=== PATIENT | male | born 1955 | race Caucasian/White ===

== ENCOUNTER 2018-07-15 20:34 | Observation (INO) ==
[2018-07-15] MEDS ORDERED: Methocarbamol 500 MG TABLET PO PRN (22:00)
[2018-07-15] MEDS ORDERED: traMADol 50 MG TABLET PO PRN (22:00)
[2018-07-15] MEDS ORDERED: *HR* LORazepam 2 MG/ML VIAL IVP PRN (22:06)
--- NOTE | 2018-07-15 23:00 | Internal Med History&Physical ---
Date of Encounter: 07/15/18 Time of Encounter: 22:57 Internal Medicine - H&P: HPI Chief complaint: seizure Admitted From: Home Plans for Post Hospital Care: Home History of present illness: Mr. Shah is a 63 year old male reports a history of hypertension and post- thyroid ablation hypothyroidism who presents on transfer from [facility] where he was taken to for a seizure episode. She states that in the past year he has had 3 episodes of syncopal events will also consciousness for which she did not seek medical attention but is unaware of the cause. Earlier today when he got out of his sister's car he was at a stoplight and at that point he lost consciousness and tenderness came to his attention and called EMS who took him to [facility]. He has poor recollection of the events around the event. He denies any chest pain but does complain of some mild headache he says he has chronic back pain for which he takes acetaminophen and tramadol as needed. He says he had has never had a seizure before but is on sure if the past syncopal episodes had seizure activity as they went on witnessed. He denies illicit drug use and says he drinks alcohol sporadically last use was 4 days ago. He does smoke half a pack daily. He has not had any more seizure activity since the witnessed episode outside. On review of old records it is seen that he was previously evaluated for a cavitary lung lesion with no conclusive results. Past Med Surg Social Fam HX - Past Medical History Medical history: COPD, hypertension, thyroid disease Psychiatric history: no psych history - Past Surgical History Surgical History: thyroidectomy Additional surgical history: Tonsils - Social History Smoking Status: Current every day smoker Smokeless Tobacco Status: Yes Alcohol use: none Drug use: none - Family History Father Name: Damian Shah SR Living Status: Age at : 45 Cause of : cerebral hemmorhage Internal Medicine - H&P: Meds Acetaminophen [Tylenol] 325 mg PO Q6HR PRN 02/23/17 [History] Albuterol Sulfate [Ventolin Hfa] 2 puff IH Q4H PRN 02/23/17 [History] Budesonide/Formoterol 80/4.5 [Symbicort 80/4.5] 2 puff IH BID 02/23/17 [History ] Levothyroxine [Synthroid] 88 mcg PO DAILY 02/23/17 [History] Loratadine [Claritin] 10 mg PO DAILY 02/23/17 [History] Tiotropium [Spiriva] 18 mcg IH 0700 02/23/17 [History] Tramadol HCl [Ultram] 50 mg PO Q6H PRN 02/23/17 [History] Atenolol [Tenormin] 25 mg PO DAILY 01/18/18 [History] Fluticasone Propionate Nasal [Flonase] 1 spr NS DAILY 01/18/18 [History] Methocarbamol [Robaxin] 500 mg PO BID PRN 01/18/18 [History] 3 Allergy/AdvReac Type Severity Reaction Status Date / Time No Known Allergies Allergy Verified 01/18/18 09:35 All Systems PM: A 10-system review of systems was performed and is negative for pertinent findings except as documented above in the HPI. - Constitutional Vitals: Temp Pulse Resp BP Pulse Ox 98.1 F 78 16 101/64 98 07/15/18 22:24 07/15/18 22:24 07/15/18 22:24 07/15/18 22:24 07/15/18 22:24 Exam: Vitals: Reviewed General: Unkept appearing and foul smelling. Skin: Dirty. HEENT: Moist mucous membranes. No conjunctivae pallor. Neck: No lymphadenopathy. No JVD. No carotid bruits. No palpable thyroid. Chest: Normal thoracic expansion. Normal breath sounds. Clear to auscultation. Heart: Normal S1 & S2; rhythmic. No rubs or murmurs. Abdomen: Non-distended, soft and non-tender to palpation. No peritoneal reaction. Liver is normal in size. Spleen is not palpable. Extremities: No clubbing, cyanosis or edema. No calf tenderness. Normal distal pulses. Neurological: Awake, alert and oriented to person, place and time. No focal deficits. Psych: Affect appropriate. - Assessment and plan (1) Seizure Current Visit: Yes Status: Acute Assessment and plan: Witnessed on the outside but not by healthcare personnel. New onset with no inciting factors noted. No recurrences since. Recommend to obtain a UDS. Should have a brain MRI and EEG done. Seizure and aspiration precautions. Benzos when necessary. Neurology consultation advised. No urgent indication for antiepileptic agents. (2) Hypertension Current Visit: Yes Status: Acute Assessment and plan: We will resume home medications. Qualifiers: Hypertension type: essential hypertension Qualified Code(s): I10 - Essential (primary) hypertension (3) Tobacco dependence Current Visit: Yes Status: Acute Assessment and plan: Counseled extensively and resources made available. Nicotine patch available if wanted. (4) Lumbago Current Visit: Yes Status: Chronic Assessment and plan: Can continue acetaminophen and tramadol as needed Qualifiers: Chronicity: chronic Back pain laterality: unspecified Sciatica presence: unspecified whether sciatica present Qualified Code(s): M54.5 - Low back pain ; G89.29 - Other chronic pain (5) DVT prophylaxis Current Visit: Yes Status: Acute Assessment and plan: Subcutaneous heparin ordered. - Time Spent With Patient Total time spent is greater than 50% in coordination of care (as documented) at patient's floor/unit and/or counseling patient: Greater than 35 minutes
[2018-07-16 05:28] LABS: Basophils # 0.1 K/mcL (0.0-0.2); Basophils % 1.1 %; Eosinophils % 0.7 %; Hematocrit 38.9 % (37.5-50.1); Hemoglobin 13.8 g/dL (12.9-16.9); Immature Granulocytes % 0.9 % (0-4); Lymphocytes # 0.6 K/mcL (0.6-4.6); Lymphocytes % 10.1 %; Mean Corpuscular HGB Conc 35.5 g/dL (31.6-35.5); Mean Corpuscular Hemoglobin 33.7 pg (28.0-33.3); Mean Corpuscular Volume 94.9 fL (83.0-100.0); Monocytes # 0.8 K/mcL (0.0-1.3); Monocytes % 14.5 %; Platelet Count 328 K/mcL (140-400); Red Cell Distribution Width 12.3 % (11.5-14.5); Segmented Neutrophils % 72.7 %
[2018-07-16 05:56] LABS: Alanine Aminotransferase 29 Units/L (7-52); Albumin 3.6 g/dL (3.5-5.7); Albumin/Globulin Ratio 0.9 (1.1-2.2); Alkaline Phosphatase 125 Units/L (34-104); Aspartate Amino Transferase 42 Units/L (13-39); BUN/Creatinine Ratio 15 (6-26); Bilirubin,Direct 0.4 mg/dL (0.0-0.2); Bilirubin,Indirect 0.4 mg/dL (0.0-1.2); Bilirubin,Total 0.8 mg/dL (0.3-1.0); Blood Urea Nitrogen 8 mg/dL (8-23); Calcium 9.4 mg/dL (8.6-10.3); Carbon Dioxide 23 mEq/L (23-29); Chloride 89 mEq/L (98-107); Globulin 4.1 g/dL (2.4-3.5); Glucose 60 mg/dL (70-105); Osmolality,Calculated 264 (280-300); Potassium 3.8 mEq/L (3.5-5.1); Sodium 129 mEq/L (136-145); Total Protein 7.7 g/dL (6.4-8.9); eGFR For Non-African Americans > 60 (> 60)
[2018-07-16 05:57] LABS: Thyroid Stimulating Hormone 6.428 mcIU/mL (0.340-5.600)
[2018-07-16] MEDS: *HR* Heparin 5,000 UNIT/ML VIAL SQ SCH ×3 (06:02→21:30)
[2018-07-16 07:44] LABS: Amphetamine Screen,Urine Negative ng/mL (Cutoff=1000); Barbiturate Screen,Urine Negative ng/mL (Cutoff=200)
[2018-07-16 07:45] LABS: Benzodiazepines Screen,Urine Negative ng/mL (Cutoff=300); Cannabinoid Screen,Urine Negative ng/mL (Cutoff = 50); Cocaine Screen,Urine Negative ng/mL (Cutoff= 300); Opiate Screen,Urine Negative ng/mL (Cutoff=300); Phencyclidine Screen,Urine Negative ng/mL (Cutoff=25)
[2018-07-16] MEDS: Budesonide/Formoterol 80/4.5 MDI IH SCH ×2 (08:25→19:32)
[2018-07-16] MEDS: Tiotropium 18 MCG inhalation IH SCH (08:25)
[2018-07-16] MEDS: Fluticasone Propionate Nasal 50 MCG/SPRAY BOTTLE NS SCH (10:08)
[2018-07-16] MEDS: Loratadine 10 MG TABLET PO SCH (10:08)
[2018-07-16] MEDS ORDERED: 0.9 % Sodium Chloride 1,000 ML IVC SCH (10:15)
--- NOTE | 2018-07-16 10:18 | Internal Med Progress Note ---
Hospitalist Progress Note - Encounter Date of Encounter: 07/16/18 Time of Encounter: 10:18 - Subjective Interval History: patient seen and examined at bedside. No seizure activity noted at this time . Nursing reported that patient has bedbugs as well as fleas. Patient states that he was unaware of this . - Exam Vitals: Temp Pulse Resp BP Pulse Ox 98.3 F 85 16 123/77 97 07/16/18 08:02 07/16/18 08:02 07/16/18 08:26 07/16/18 08:02 07/16/18 08:26 Exam: Vitals: Reviewed General: Unkept appearing and foul smelling. Skin: Dirty. HEENT: Moist mucous membranes. No conjunctivae pallor. Neck: No lymphadenopathy. No JVD. No carotid bruits. No palpable thyroid. Chest: Normal thoracic expansion. Normal breath sounds. Clear to auscultation. Heart: Normal S1 & S2; rhythmic. No rubs or murmurs. Abdomen: Non-distended, soft and non-tender to palpation. No peritoneal reaction. Liver is normal in size. Spleen is not palpable. Extremities: No clubbing, cyanosis or edema. No calf tenderness. Normal distal pulses. Neurological: Awake, alert and oriented to person, place and time. No focal deficits. Psych: Affect appropriate. - Assessment and Plan (1) Seizure Current Visit: Yes Status: Acute Assessment and Plan: Witnessed on the outside but not by healthcare personnel. New onset with no inciting factors noted. No recurrences since. Recommend to obtain a UDS. Should have a brain MRI and EEG done. Seizure and aspiration precautions. Benzos when necessary. Neurology consultation advised. No urgent indication for antiepileptic agents. 07/16 Patient reports that approx a month ago he had 2 separate occasions where he awoke on the floor, and had a loss of time. We will cont with seizure precautions awaiting MRI EEG results. Benzos when needed neurology consulted appreciate recommendations (2) Hypertension Current Visit: Yes Status: Acute Assessment and Plan: Controlled we will continue home medications. (3) Tobacco dependence Current Visit: Yes Status: Acute Assessment and Plan: Counseled extensively and resources made available. Nicotine patch available if wanted. (4) DVT prophylaxis Current Visit: Yes Status: Acute Assessment and Plan: Subcutaneous heparin ordered. (5) Lumbago Current Visit: Yes Status: Chronic Assessment and Plan: Can continue acetaminophen and tramadol as needed - Time Spent with Patient Total time spent is greater than 50% in coordination of care (as documented) at patient's floor/unit and/or counseling patient: Internal Medicine: Result - Labs CBC & Chem 7: 07/16/18 03:37 07/16/18 03:37 Labs: Short CBC 07/16/18 Range/Units 03:37 WBC 5.5 (4.3-11.1) K/mcL Hgb 13.8 (12.9-16.9) g/dL Hct 38.9 (37.5-50.1) % Plt Count 328 (140-400) K/mcL Neutrophils # 4.0 (1.6-8.9) K/mcL BMP 07/16/18 03:37 Sodium 129 L Potassium 3.8 Chloride 89 L Carbon Dioxide 23 BUN 8 Creatinine 0.55 L Glucose 60 L Calcium 9.4 Liver Function 07/16/18 Range/Units 03:37 Total Bilirubin 0.8 (0.3-1.0) mg/dL Direct Bilirubin 0.4 H (0.0-0.2) mg/dL AST 42 H (13-39) Units/L ALT 29 (7-52) Units/L Alkaline Phosphatase 125 H (34-104) Units/L Albumin 3.6 (3.5-5.7) g/dL - Impressions Impressions Brain MRI 07/15/18 22:04 IMPRESSION: No acute intracranial abnormality. Mild chronic microvascular ischemic disease. D/ / 07/16/2018 08:11:31 Roberto Lora MD / godfrey Interpreting Provider: Roberto Lora MD Consult Discharge Plan - Plan [facility]errals: [facility] [Primary Care Provider] - (2) Hypertension Qualifiers: Hypertension type: essential hypertension Qualified Code(s): I10 - Essential (primary) hypertension (5) Lumbago Qualifiers: Chronicity: chronic Back pain laterality: unspecified Sciatica presence: unspecified whether sciatica present Qualified Code(s): M54.5 - Low back pain; G89.29 - Other chronic pain
[2018-07-16] MEDS: Acetaminophen 325 MG TABLET PO PRN (11:55)
--- NOTE | 2018-07-16 15:47 | Neurology - Consult Note ---
Date of Encounter: 07/16/18 Time of Encounter: 15:44 Assessment and Plan (1) Spell of altered consciousness Current Visit: Yes Status: Acute At this juncture I cannot be absolutely certain that he really experienced an episode of seizure versus syncope versus up all intoxication. He does take tramadol which is known to be epileptogenic. I therefore recommend an alternative choice for pain management. Otherwise I would simply recommend obtaining an EEG. I would also recommend considering a loop recorder in this gentleman who is had multiple episodes of altered consciousness. I am not convinced at this point. He truly has epilepsy however this would be pending further assessment and workup. I would hold antiepileptic medications for now. Further recommendations will be made pending the EEG. I am unable to identify any MRI abnormality which might be expected to cause seizures. History of Present Illness HPI: The chart was reviewed, the patient was seen and examined. Mr. Shah is a 63 year old male who is being seen for neurologic consultation at the request of the hospitalist secondary to question of seizure activity. He informs me that he was walking in [facility] yesterday when apparently he was witnessed to fall by someone driving by in a car. No generalized tonic-clonic seizure activities reported. He is not certain how long he remained unconscious for. He did not lose bladder continence and did not bite his tongue. He did however her scope his left knee. He states he still feels "dizzy" he has had 2 episodes of this nature over the past year however has not had any medical assessment for them. He is known to take tramadol for, back pain. He denies starting any other medications or discontinuing it. He did have a blood alcohol level of 17. MRI scan of the brain was negative. He is not had EEG, he is not on cardiac monitoring. He was slightly hyponatremic at 129. Vital signs are stable. Past Med Surg Social Fam HX - Past Medical History Medical history: COPD, hypertension, thyroid disease Psychiatric history: no psych history - Past Surgical History Surgical History: thyroidectomy Additional surgical history: Tonsils - Social History Smoking Status: Current every day smoker Smokeless Tobacco Status: Yes Alcohol use: none Drug use: none - Family History Father Name: Damian Shah SR Living Status: Age at : 45 Cause of : cerebral hemmorhage Medications and Allergies Acetaminophen [Tylenol] 325 mg PO Q6HR PRN 02/23/17 [History] Albuterol Sulfate [Ventolin Hfa] 2 puff IH Q6H PRN 02/23/17 [History] Budesonide/Formoterol 80/4.5 [Symbicort 80/4.5] 2 puff IH BID 02/23/17 [History ] Loratadine [Claritin] 10 mg PO DAILY 02/23/17 [History] Tiotropium [Spiriva] 18 mcg IH 0700 02/23/17 [History] Tramadol HCl [Ultram] 50 mg PO Q6H PRN 02/23/17 [History] Atenolol [Tenormin] 25 mg PO DAILY 01/18/18 [History] Fluticasone Propionate Nasal [Flonase] 1 spr NS DAILY 01/18/18 [History] Levothyroxine [Synthroid] 88 mcg PO 0630 07/16/18 [History] Losartan [Cozaar] 25 mg PO DAILY 07/16/18 [History] Multivitamin [One Daily Multivitamin] 1 tab PO DAILY 07/16/18 [History] Sodium Chloride [Sodium Chloride Tab] 1 gm PO DAILY 07/16/18 [History] 3 Allergy/AdvReac Type Severity Reaction Status Date / Time No Known Allergies Allergy Verified 07/16/18 11:55 All Systems: The remainder of the systems were reviewed and are negative Review of Systems: Balance of the systems review is negative. Physical Examination - Vital Signs Vital Signs: Initial Vital Signs Temp Pulse Resp BP Pulse Ox 98.1 F 78 16 101/64 98 07/15/18 22:24 07/15/18 22:24 07/15/18 22:24 07/15/18 22:24 07/15/18 22:24 - Neurologic Detailed motor examination: full strength in all major muscle groups Motor examination - right side: 5/5: deltoids, biceps, triceps, wrist flexion, wrist extension, senior software engineer analytics, hip flexors, tibialis Anterior, quadriceps, toe extension (EHL), plantarflexion Motor examination - left side: 5/5: deltoids, biceps, triceps, wrist flexion, wrist extension, hip flexors, senior software engineer analytics, quadriceps, tibialis Anterior, toe extension (EHL), plantarflexion Mental Status Examination: awake, alert, oriented to person, oriented to place, oriented to time, follows commands appropriately, answers questions appropriately, no agnosia, no aphasia, no aproxia Cranial nerve examination: PERRL, EOMI, visual morris intact, corneal reflexes brisk symmetrically, sensory to face intact, mastication intact, no facial asymmetry is present, no dysarthria, hearing is intact symmetrically, soft palate elevates bilaterally upon phonation, gag reflex intact, flexes SCM and trapezius muscles symmetrically with full power, tongue protrudes midline, no atrophy or facial fasiculations present Cerebellar examination: no dysmetria, performs finger to nose and heel to lackey symmetrically without ataxia, no truncal ataxia, no difficulty with rapid alternating movements Results - Laboratory Findings CBC and BMP: 07/16/18 03:37 07/16/18 03:37 Abnormal lab findings: Abnormal lab results RBC 4.10 M/mcL (4.19-5.50) L 07/16/18 03:37 MCH 33.7 pg (28.0-33.3) H 07/16/18 03:37 MPV 9.0 fL (9.4-12.4) L 07/16/18 03:37 Sodium 129 mEq/L (136-145) L 07/16/18 03:37 Chloride 89 mEq/L (98-107) L 07/16/18 03:37 Creatinine 0.55 mg/dL (0.70-1.30) L 07/16/18 03:37 Glucose 60 mg/dL (70-105) L 07/16/18 03:37 Calculated Osmolality 264 (280-300) L 07/16/18 03:37 Direct Bilirubin 0.4 mg/dL (0.0-0.2) H 07/16/18 03:37 AST 42 Units/L (13-39) H 07/16/18 03:37 Alkaline Phosphatase 125 Units/L (34-104) H 07/16/18 03:37 Globulin 4.1 g/dL (2.4-3.5) H 07/16/18 03:37 Albumin/Globulin Ratio 0.9 (1.1-2.2) L 07/16/18 03:37 TSH 6.428 mcIU/mL (0.340-5.600) H 07/16/18 03:37 Ethyl Alcohol 17 mg/dL (Less than 10) H 07/16/18 03:37 Consult Discharge Plan - Plan [facility]errals: [facility] [Primary Care Provider] -
[2018-07-16] MEDS ORDERED: *HR* HYDROcodone/Acet 5/325 mg TABLET PO ONE (21:48)
[2018-07-17] MEDS: *HR* Heparin 5,000 UNIT/ML VIAL SQ SCH ×3 (05:07→21:06)
[2018-07-17 07:03] LABS: BUN/Creatinine Ratio 20 (6-26); Blood Urea Nitrogen 11 mg/dL (8-23); Calcium 8.8 mg/dL (8.6-10.3); Carbon Dioxide 25 mEq/L (23-29); Chloride 91 mEq/L (98-107); Glucose 102 mg/dL (70-105); Osmolality,Calculated 262 (280-300); Potassium 3.5 mEq/L (3.5-5.1); Sodium 126 mEq/L (136-145); eGFR For Non-African Americans > 60 (> 60)
[2018-07-17 07:34] LABS: Basophils % 0.7 %; Eosinophils # 0.1 K/mcL (0.0-0.6); Eosinophils % 1.6 %; Hemoglobin 12.6 g/dL (12.9-16.9); Immature Granulocytes % 0.9 % (0-4); Lymphocytes # 0.6 K/mcL (0.6-4.6); Lymphocytes % 10.5 %; Mean Corpuscular Hemoglobin 33.8 pg (28.0-33.3); Mean Corpuscular Volume 96.5 fL (83.0-100.0); Mean Platelet Volume 9.3 fL (9.4-12.4); Monocytes # 0.8 K/mcL (0.0-1.3); Monocytes % 14.2 %; Neutrophils # 4.1 K/mcL (1.6-8.9); Platelet Count 336 K/mcL (140-400); Red Blood Count 3.73 M/mcL (4.19-5.50); Red Cell Distribution Width 12.2 % (11.5-14.5); Segmented Neutrophils % 72.1 %
[2018-07-17] MEDS: Loratadine 10 MG TABLET PO SCH (08:04)
[2018-07-17] MEDS: Fluticasone Propionate Nasal 50 MCG/SPRAY BOTTLE NS SCH (08:04)
[2018-07-17] MEDS: Acetaminophen 325 MG TABLET PO PRN (08:09)
[2018-07-17 08:51] LABS: Sodium, Urine 110.6 mEq/L
[2018-07-17] MEDS: Budesonide/Formoterol 80/4.5 MDI IH SCH ×2 (10:44→20:41)
[2018-07-17] MEDS: Tiotropium 18 MCG inhalation IH SCH (10:44)
--- NOTE | 2018-07-17 12:04 | Internal Med Progress Note ---
Hospitalist Progress Note - Encounter Date of Encounter: 07/17/18 Time of Encounter: 12:04 - Subjective Interval History: patient seen and examined at bedside. No seizure activity noted at this time Denies any pain or discomfort at this time - Exam Vitals: Temp Pulse Resp BP Pulse Ox 98.1 F 70 13 90/48 98 07/17/18 11:27 07/17/18 11:27 07/17/18 11:27 07/17/18 11:27 07/17/18 11:27 Exam: Vitals: Reviewed General: Unkept appearing and foul smelling. Skin: Dirty. bite escobar on lower legs bilat HEENT: Moist mucous membranes. No conjunctivae pallor. Neck: No lymphadenopathy. No JVD. No carotid bruits. No palpable thyroid. Chest: Normal thoracic expansion. Normal breath sounds. Clear to auscultation. Heart: Normal S1 & S2; rhythmic. No rubs or murmurs. Abdomen: Non-distended, soft and non-tender to palpation. No peritoneal reaction. Liver is normal in size. Spleen is not palpable. Extremities: No clubbing, cyanosis or edema. No calf tenderness. Normal distal pulses. Neurological: Awake, alert and oriented to person, place and time. No focal deficits. Psych: Affect appropriate. - Assessment and Plan (1) Seizure Current Visit: Yes Status: Acute Assessment and Plan: Witnessed on the outside but not by healthcare personnel. New onset with no inciting factors noted. No recurrences since. Recommend to obtain a UDS. Should have a brain MRI and EEG done. Seizure and aspiration precautions. Benzos when necessary. Neurology consultation advised. No urgent indication for antiepileptic agents. 07/16 Patient reports that approx a month ago he had 2 separate occasions where he awoke on the floor, and had a loss of time. We will cont with seizure precautions awaiting MRI EEG results. Benzos when needed neurology consulted appreciate recommendations 07/17- no seizure activity overnight. Continues cardiac monitoring MRI with no acute findings Awaiting EEG results Neurology consult to appreciate recommendations Benzos as needed We will discontinue Tramadol-per neurology's recommendation (2) Hypertension Current Visit: Yes Status: Acute Assessment and Plan: Controlled we will continue home medications. (3) Tobacco dependence Current Visit: Yes Status: Acute Assessment and Plan: Counseled extensively and resources made available. Nicotine patch available if wanted. (4) DVT prophylaxis Current Visit: Yes Status: Acute Assessment and Plan: Subcutaneous heparin ordered. (5) Lumbago Current Visit: Yes Status: Chronic - Time Spent with Patient Total time spent is greater than 50% in coordination of care (as documented) at patient's floor/unit and/or counseling patient: Internal Medicine: Result - Labs CBC & Chem 7: 07/17/18 05:54 07/17/18 05:59 Labs: Short CBC 07/17/18 Range/Units 05:54 WBC 5.6 (4.3-11.1) K/mcL Hgb 12.6 L (12.9-16.9) g/dL Hct 36.0 L (37.5-50.1) % Plt Count 336 (140-400) K/mcL Neutrophils # 4.1 (1.6-8.9) K/mcL BMP 07/17/18 05:59 Sodium 126 L Potassium 3.5 Chloride 91 L Carbon Dioxide 25 BUN 11 Creatinine 0.54 L Glucose 102 Calcium 8.8 Consult Discharge Plan - Plan Referrals: [facility] [Primary Care Provider] - (2) Hypertension Qualifiers: Hypertension type: essential hypertension Qualified Code(s): I10 - Essential (primary) hypertension (5) Lumbago Qualifiers: Chronicity: chronic Back pain laterality: unspecified Sciatica presence: unspecified whether sciatica present Qualified Code(s): M54.5 - Low back pain; G89.29 - Other chronic pain
[2018-07-17] MEDS: *HR* HYDROcodone/Acet 5/325 mg TABLET PO PRN ×2 (12:22→21:07)
--- NOTE | 2018-07-17 13:36 | Neurology Progress Note ---
Date of Encounter: 07/17/18 Time of Encounter: 13:33 Assessment and Plan (1) Spell of altered consciousness Current Visit: Yes Status: Acute Suspect we are dealing with a symptomatic seizure due to tramadol. We will obtain an EEG tomorrow to look for epileptiform potentials. If the EEG is normal or does not reveal epileptiform activity then I would hesitate to start AEDs. Subjective Interval history: The chart was reviewed, the patient was seen and examined. He had an uneventful night. He is currently sitting up in bed eating his lunch. He denies any neurologic changes. The EEG is yet pending. At this juncture I am leaning towards the seizure being induced by the tramadol. Further recommendations will be made after the EEG. He is in no acute distress at this time. MRI scan of the brain was negative for an acute abnormality. Objective - Constitutional Vitals: Temp Pulse Resp BP Pulse Ox 98.1 F 70 13 90/48 98 07/17/18 11:27 07/17/18 11:27 07/17/18 11:27 07/17/18 11:27 07/17/18 11:27 - Neurological Exam Motor Examination: Present: full strength in all major muscle groups Motor examination - right side: 5/5: deltoids, biceps, triceps, angular developer, hip flexors, tibialis Anterior, quadriceps, toe extension (EHL), plantarflexion Motor examination - left side: 5/5: deltoids, biceps, triceps, hip flexors, angular developer , quadriceps, tibialis Anterior, toe extension (EHL), plantarflexion Sensation intact: Present: intact Reflexes: Biceps: 2+, Triceps: 2+, Brachioradialis: 2+, Patella: 2+, Achilles: 2 + Mental Status Examination: Present: awake, alert, oriented to person, oriented to place, oriented to time, follows commands appropriately, answers questions appropriately, no agnosia, no aphasia, no aproxia Cranial nerve examination: Present: PERRL, EOMI, visual morris intact, corneal reflexes brisk symmetrically, sensory to face intact, mastication intact, no facial asymmetry is present, no dysarthria, hearing is intact symmetrically, soft palate elevates bilaterally upon phonation, gag reflex intact, flexes SCM and trapezius muscles symmetrically with full power, tongue protrudes midline, no atrophy or facial fasiculations present Cerebellar examination: Present: no dysmetria, performs finger to nose and heel to lackey symmetrically without ataxia, no truncal ataxia, no difficulty with rapid alternating movements Results - Laboratory Findings CBC and BMP: 07/17/18 05:54 07/17/18 05:59 Abnormal lab findings: Abnormal lab results RBC 3.73 M/mcL (4.19-5.50) L 07/17/18 05:54 Hgb 12.6 g/dL (12.9-16.9) L 07/17/18 05:54 Hct 36.0 % (37.5-50.1) L 07/17/18 05:54 MCH 33.8 pg (28.0-33.3) H 07/17/18 05:54 MPV 9.3 fL (9.4-12.4) L 07/17/18 05:54 Sodium 126 mEq/L (136-145) L 07/17/18 05:59 Chloride 91 mEq/L (98-107) L 07/17/18 05:59 Creatinine 0.54 mg/dL (0.70-1.30) L 07/17/18 05:59 Calculated Osmolality 262 (280-300) L 07/17/18 05:59 Direct Bilirubin 0.4 mg/dL (0.0-0.2) H 07/16/18 03:37 AST 42 Units/L (13-39) H 07/16/18 03:37 Alkaline Phosphatase 125 Units/L (34-104) H 07/16/18 03:37 Globulin 4.1 g/dL (2.4-3.5) H 07/16/18 03:37 Albumin/Globulin Ratio 0.9 (1.1-2.2) L 07/16/18 03:37 TSH 6.428 mcIU/mL (0.340-5.600) H 07/16/18 03:37 Ethyl Alcohol 17 mg/dL (Less than 10) H 07/16/18 03:37 Consult Discharge Plan - Plan Referrals: [facility] [Primary Care Provider] -
[2018-07-18] MEDS: *HR* Heparin 5,000 UNIT/ML VIAL SQ SCH ×3 (05:06→21:02)
[2018-07-18] MEDS: Tiotropium 18 MCG inhalation IH SCH (07:39)
[2018-07-18] MEDS: Budesonide/Formoterol 80/4.5 MDI IH SCH ×2 (07:39→21:51)
[2018-07-18] MEDS: Fluticasone Propionate Nasal 50 MCG/SPRAY BOTTLE NS SCH (07:54)
[2018-07-18] MEDS: Loratadine 10 MG TABLET PO SCH (07:54)
[2018-07-18] MEDS: *HR* HYDROcodone/Acet 5/325 mg TABLET PO PRN ×2 (07:54→19:37)
[2018-07-18 08:38] LABS: Basophils # 0.1 K/mcL (0.0-0.2); Basophils % 0.8 %; Eosinophils # 0.1 K/mcL (0.0-0.6); Eosinophils % 2.2 %; Hematocrit 36.1 % (37.5-50.1); Hemoglobin 12.5 g/dL (12.9-16.9); Immature Granulocytes % 0.9 % (0-4); Lymphocytes # 0.8 K/mcL (0.6-4.6); Lymphocytes % 12.2 %; Mean Corpuscular HGB Conc 34.6 g/dL (31.6-35.5); Mean Corpuscular Volume 98.1 fL (83.0-100.0); Mean Platelet Volume 9.2 fL (9.4-12.4); Monocytes % 15.2 %; Neutrophils # 4.4 K/mcL (1.6-8.9); Platelet Count 348 K/mcL (140-400); Red Blood Count 3.68 M/mcL (4.19-5.50); Red Cell Distribution Width 12.2 % (11.5-14.5); Segmented Neutrophils % 68.7 %
--- NOTE | 2018-07-18 08:51 | Neurology Progress Note ---
Date of Encounter: 07/18/18 Time of Encounter: 08:50 Assessment and Plan (1) Spell of altered consciousness Current Visit: Yes Status: Acute Patient has been stable since admission. Has no other episodes of altered consciousness. Presumably he had a seizure perhaps secondary to tramadol. The EEG is yet pending. If the EEG is negative then I would likely not start antiepileptic medications. MRI scan of the brain was unrevealing. He is also on Holter monitoring now. Subjective Interval history: The chart was reviewed, patient was seen and examined. He had an uneventful night. He has had no further seizure activity since admission. Patient is sitting up in bed eating breakfast upon my entering the room. He has not no acute distress. EEG is ordered for today. Objective - Constitutional Vitals: Temp Pulse Resp BP Pulse Ox 98.2 F 64 16 108/61 98 07/18/18 06:35 07/18/18 06:35 07/18/18 07:42 07/18/18 06:35 07/18/18 07:42 - Neurological Exam Motor Examination: Present: full strength in all major muscle groups Motor examination - right side: 5/5: deltoids, biceps, triceps, workforce services representative, hip flexors, tibialis Anterior, quadriceps, toe extension (EHL), plantarflexion Motor examination - left side: 5/5: deltoids, biceps, triceps, hip flexors, workforce services representative , quadriceps, tibialis Anterior, toe extension (EHL), plantarflexion Sensation intact: Present: intact Mental Status Examination: Present: awake, alert, oriented to person, oriented to place, oriented to time, follows commands appropriately, answers questions appropriately, no agnosia, no aphasia, no aproxia Cranial nerve examination: Present: PERRL, EOMI, visual morris intact, corneal reflexes brisk symmetrically, sensory to face intact, mastication intact, no facial asymmetry is present, no dysarthria, hearing is intact symmetrically, soft palate elevates bilaterally upon phonation, gag reflex intact, flexes SCM and trapezius muscles symmetrically with full power, tongue protrudes midline, no atrophy or facial fasiculations present Cerebellar examination: Present: no dysmetria, performs finger to nose and heel to lackey symmetrically without ataxia, no truncal ataxia, no difficulty with rapid alternating movements Results - Laboratory Findings CBC and BMP: 07/18/18 08:02 07/17/18 05:59 Abnormal lab findings: Abnormal lab results RBC 3.68 M/mcL (4.19-5.50) L 07/18/18 08:02 Hgb 12.5 g/dL (12.9-16.9) L 07/18/18 08:02 Hct 36.1 % (37.5-50.1) L 07/18/18 08:02 MCH 34.0 pg (28.0-33.3) H 07/18/18 08:02 MPV 9.2 fL (9.4-12.4) L 07/18/18 08:02 Sodium 126 mEq/L (136-145) L 07/17/18 05:59 Chloride 91 mEq/L (98-107) L 07/17/18 05:59 Creatinine 0.54 mg/dL (0.70-1.30) L 07/17/18 05:59 Calculated Osmolality 262 (280-300) L 07/17/18 05:59 Direct Bilirubin 0.4 mg/dL (0.0-0.2) H 07/16/18 03:37 AST 42 Units/L (13-39) H 07/16/18 03:37 Alkaline Phosphatase 125 Units/L (34-104) H 07/16/18 03:37 Globulin 4.1 g/dL (2.4-3.5) H 07/16/18 03:37 Albumin/Globulin Ratio 0.9 (1.1-2.2) L 07/16/18 03:37 TSH 6.428 mcIU/mL (0.340-5.600) H 07/16/18 03:37 Ethyl Alcohol 17 mg/dL (Less than 10) H 07/16/18 03:37 Consult Discharge Plan - Plan [facility]errals: [facility] [Primary Care Provider] -
[2018-07-18 08:57] LABS: BUN/Creatinine Ratio 16 (6-26); Blood Urea Nitrogen 9 mg/dL (8-23); Calcium 9.3 mg/dL (8.6-10.3); Carbon Dioxide 30 mEq/L (23-29); Chloride 93 mEq/L (98-107); Glucose 88 mg/dL (70-105); Osmolality,Calculated 266 (280-300); Potassium 3.8 mEq/L (3.5-5.1); Sodium 129 mEq/L (136-145); eGFR For Non-African Americans > 60 (> 60)
--- NOTE | 2018-07-18 10:46 | Internal Med Progress Note ---
Hospitalist Progress Note - Encounter Date of Encounter: 07/18/18 Time of Encounter: 10:46 - Subjective Interval History: patient seen and examined at bedside. No seizure activity noted at this time Denies any pain or discomfort at this time - Exam Vitals: Temp Pulse Resp BP Pulse Ox 98.2 F 64 16 108/61 98 07/18/18 06:35 07/18/18 06:35 07/18/18 07:42 07/18/18 06:35 07/18/18 07:42 Exam: Vitals: Reviewed General: Unkept appearing and foul smelling. Skin: Dirty. bite escobar on lower legs bilat HEENT: Moist mucous membranes. No conjunctivae pallor. Neck: No lymphadenopathy. No JVD. No carotid bruits. No palpable thyroid. Chest: Normal thoracic expansion. Normal breath sounds. Clear to auscultation. Heart: Normal S1 & S2; rhythmic. No rubs or murmurs. Abdomen: Non-distended, soft and non-tender to palpation. No peritoneal reaction. Liver is normal in size. Spleen is not palpable. Extremities: No clubbing, cyanosis or edema. No calf tenderness. Normal distal pulses. Neurological: Awake, alert and oriented to person, place and time. No focal deficits. Psych: Affect appropriate. - Assessment and Plan (1) Seizure Current Visit: Yes Status: Acute Assessment and Plan: Witnessed on the outside but not by healthcare personnel. New onset with no inciting factors noted. No recurrences since. Recommend to obtain a UDS. Should have a brain MRI and EEG done. Seizure and aspiration precautions. Benzos when necessary. Neurology consultation advised. No urgent indication for antiepileptic agents. 07/16 Patient reports that approx a month ago he had 2 separate occasions where he awoke on the floor, and had a loss of time. We will cont with seizure precautions awaiting MRI EEG results. Benzos when needed neurology consulted appreciate recommendations 07/17- no seizure activity overnight. Continues cardiac monitoring MRI with no acute findings Awaiting EEG results Neurology consult to appreciate recommendations Benzos as needed We will discontinue Tramadol-per neurology's recommendation 07/18 no seizure activity overnight. Continues cardiac monitoring-no arrhythmias overnight sinus rhythm average heart rate around 70 MRI with no acute findings Awaiting EEG results Neurology consult to appreciate recommendations Benzos as needed We will discontinue Tramadol-per neurology's recommendation (2) Hypertension Current Visit: Yes Status: Acute Assessment and Plan: Controlled we will continue home medications. (3) Tobacco dependence Current Visit: Yes Status: Acute Assessment and Plan: Counseled extensively and resources made available. Nicotine patch available if wanted. (4) DVT prophylaxis Current Visit: Yes Status: Acute Assessment and Plan: Subcutaneous heparin ordered. (5) Lumbago Current Visit: Yes Status: Chronic Assessment and Plan: Can continue acetaminophen tramadol DC'd per neurology's recommendations Continue with [place] for now Evaluated PT OT awaiting recommendations. - Time Spent with Patient Total time spent is greater than 50% in coordination of care (as documented) at patient's floor/unit and/or counseling patient: Internal Medicine: Result - Labs CBC & Chem 7: 07/18/18 08:02 07/18/18 08:02 Labs: Short CBC 07/18/18 Range/Units 08:02 WBC 6.4 (4.3-11.1) K/mcL Hgb 12.5 L (12.9-16.9) g/dL Hct 36.1 L (37.5-50.1) % Plt Count 348 (140-400) K/mcL Neutrophils # 4.4 (1.6-8.9) K/mcL BMP 07/17/18 07/18/18 05:59 08:02 Sodium 126 L 129 L Potassium 3.5 3.8 Chloride 91 L 93 L Carbon Dioxide 25 30 H BUN 11 9 Creatinine 0.54 L 0.57 L Glucose 102 88 Calcium 8.8 9.3 - Impressions Impressions Brain MRI 07/15/18 22:04 IMPRESSION: No acute intracranial abnormality. Mild chronic microvascular ischemic disease. D/ / 07/16/2018 08:11:31 Roberto Lora MD / [facility] Interpreting Provider: Roberto Lora MD Consult Discharge Plan - Plan [facility]errals: [facility] [Primary Care Provider] - (2) Hypertension Qualifiers: Hypertension type: essential hypertension Qualified Code(s): I10 - Essential (primary) hypertension (5) Lumbago Qualifiers: Chronicity: chronic Back pain laterality: unspecified Sciatica presence: unspecified whether sciatica present Qualified Code(s): M54.5 - Low back pain; G89.29 - Other chronic pain
--- NOTE | 2018-07-18 12:18 | EEG/EMG/Oth Biometrics Report ---
EEG Procedure Report Date of procedure: 07/18/18 EEG Procedure: Routine EEG Procedure Note: This is a report of a 21 channel bipolar and referential montage EEG. A posterior dominant rhythm of 8 Hz moderate voltage alpha frequencies identified symmetrically in the posterior head regions. This rhythm attenuates symmetrically with eye opening. Hyperventilation is performed and does not significantly alter the recording. Periods of drowsiness and stage II sleep are identified as reference by dropout of the posterior dominant rhythm and emergence of vertex activity K complexes and sleep spindles. Photic stimulations performed and produces a symmetric driving response. The EKG rhythm strip reveals normal sinus rhythm at 66 bpm. Impressions: This EEG recording is within normal limits. There is no evidence of epileptiform activity identified during the study. Comment: A normal EEG does not preclude a diagnosis of seizure or epilepsy. If the clinical suspicion for seizure activity is high, serial EEGs or perhaps a prolonged recording may increase the yield. Please correlate clinically.
[2018-07-18] MEDS: Acetaminophen 325 MG TABLET PO PRN (19:36)
[2018-07-19 04:57] LABS: Basophils # 0.1 K/mcL (0.0-0.2); Basophils % 1.2 %; Eosinophils # 0.1 K/mcL (0.0-0.6); Eosinophils % 2.6 %; Hematocrit 30.5 % (37.5-50.1); Immature Granulocytes % 1.6 % (0-4); Lymphocytes # 0.7 K/mcL (0.6-4.6); Lymphocytes % 14.3 %; Mean Corpuscular HGB Conc 34.8 g/dL (31.6-35.5); Mean Corpuscular Hemoglobin 34.2 pg (28.0-33.3); Mean Corpuscular Volume 98.4 fL (83.0-100.0); Mean Platelet Volume 9.1 fL (9.4-12.4); Monocytes # 1.2 K/mcL (0.0-1.3); Monocytes % 24.5 %; Neutrophils # 2.8 K/mcL (1.6-8.9); Platelet Count 301 K/mcL (140-400); Red Cell Distribution Width 12.5 % (11.5-14.5); Segmented Neutrophils % 55.8 %
[2018-07-19 05:01] LABS: Hemoglobin 10.6 g/dL (12.9-16.9)
[2018-07-19 05:12] LABS: BUN/Creatinine Ratio 26 (6-26); Blood Urea Nitrogen 16 mg/dL (8-23); Calcium 9.1 mg/dL (8.6-10.3); Carbon Dioxide 28 mEq/L (23-29); Chloride 95 mEq/L (98-107); Glucose 103 mg/dL (70-105); Osmolality,Calculated 265 (280-300); Potassium 4.2 mEq/L (3.5-5.1); Sodium 127 mEq/L (136-145); eGFR For Non-African Americans > 60 (> 60)
[2018-07-19 05:19] LABS: Platelet Estimate Normal (Normal)
[2018-07-19] MEDS: *HR* Heparin 5,000 UNIT/ML VIAL SQ SCH (06:13)
[2018-07-19 07:32] VITALS: BP 144/83
[2018-07-19] MEDS: Budesonide/Formoterol 80/4.5 MDI IH SCH (08:06)
[2018-07-19] MEDS: Tiotropium 18 MCG inhalation IH SCH (08:06)
--- NOTE | 2018-07-19 08:38 | Discharge Summary ---
- NOTES TO OUTPATIENT PROVIDER Notes to Outpatient Provider: Concern for syncopal events; reporting 3 events in 6 months. Noted to occur after starting atenolol. Throughout stay was found to have hypotension and bradycardia at times. Consider downtitration of betablocker to prevent further instances of sycope. If s/sx of syncope continue consider loop recorder. Also, there was some concern for unwitnissed seizure activity. EEG negative, MRI brain negative for acute abnormality. Tramadol d/c'd d/t potential to cause seizures. Date of Encounter: 07/19/18 Time of Encounter: 08:35 - Discharge Diagnosis (1) Seizure Priority: Primary Status: Acute Assessment and Plan: Concern for possible seizures unwitnessed by healthcare personnel but by bystanders Unclear whether or not this was actually seizure activity MRI brain negative for acute cranial abnormality EEG without epileptiform activity Patient has not had any return of seizure-like activity throughout stay Consider possible seizure activity due to Tramadol; discontinue tramadol per recommendations of neurology Patient reports that approx a month ago he had 2 separate occasions where he awoke on the floor, and had a loss of time; etiology unclear He may benefit from a loop recorder to further assess for contributing arrhythmic events (2) Hypertension Priority: Secondary Status: Acute Assessment and Plan: per hx, episodes of mild hypotension throughout stay will decrease BB dose to 12.g mg daily at d/c f/u with PCP at [facility] for further monitoring concern that BB dose contributing to falls and syncope Qualifiers: Hypertension type: essential hypertension Qualified Code(s): I10 - Essential (primary) hypertension (3) Tobacco dependence Priority: Secondary Status: Acute Assessment and Plan: disucssed tobacco cessation (4) Lumbago Priority: Secondary Status: Chronic Assessment and Plan: Treat with acetaminophen tramadol DC'd per neurology's recommendations as it increase risk of epileptic events Qualifiers: Chronicity: chronic Back pain laterality: unspecified Sciatica presence: unspecified whether sciatica present Qualified Code(s): M54.5 - Low back pain ; G89.29 - Other chronic pain (5) DVT prophylaxis Priority: Secondary Status: Acute Hospital course: Mr. Shah is a 63 year old male admitted for concern for syncope and seizure like activity. Neurological workup included MRI brain and EEG which found no acute abnormalities or seizure activity. Consider Tramadol as cause of seizure like activity. This has been discontinued. He has had no return of seizure- like activity throughout stay. Additionally, the patient reports that his recently started on atenolol due to tachycardia but denies any arrhythmias. Throughout stay was found to have bradycardia and mild hypotension. Beta nurys dose decreased from 25 mg to 12.5 mg by mouth daily. He will be given a prescription for this at discharge. If he has continued seizure-like activity and/or syncopal events consider a loop recorder study with CT cardiology. He is instructed to follow-up with his PCP within 1 week of discharge and to follow-up with his director hedis within 1 week of discharge. Discharge discussed with: patient, nurse Time spent discussing smoking cessation with patient: 3 to 10 minutes - Time Spent with Patient Total time spent providing and/or coordinating discharge services: Less than 30 minutes - Discharge Medications Prescriptions: Atenolol [Tenormin] 12.5 mg PO DAILY 30 Days #15 tablet Home Medications: Acetaminophen [Tylenol] 325 mg PO Q6HR PRN 02/23/17 [History] Albuterol Sulfate [Ventolin Hfa] 2 puff IH Q6H PRN 02/23/17 [History] Budesonide/Formoterol 80/4.5 [Symbicort 80/4.5] 2 puff IH BID 02/23/17 [History ] Loratadine [Claritin] 10 mg PO DAILY 02/23/17 [History] Tiotropium [Spiriva] 18 mcg IH 0700 02/23/17 [History] Tramadol HCl [Ultram] 50 mg PO Q6H PRN 02/23/17 [History] Fluticasone Propionate Nasal [Flonase] 1 spr NS DAILY 01/18/18 [History] Levothyroxine [Synthroid] 88 mcg PO 0630 07/16/18 [History] Losartan [Cozaar] 25 mg PO DAILY 07/16/18 [History] Multivitamin [One Daily Multivitamin] 1 tab PO DAILY 07/16/18 [History] Sodium Chloride [Sodium Chloride Tab] 1 gm PO DAILY 07/16/18 [History] Atenolol [Tenormin] 12.5 mg PO DAILY 30 Days #15 tablet 07/19/18 [Rx] Allergies/Adverse Reactions: 3 Allergy/AdvReac Type Severity Reaction Status Date / Time No Known Allergies Allergy Verified 07/16/18 11:55 Date of admission: 07/15/18 21:56 [facility] care physician: [facility] Consults: 07/15/18 22:07 Consult to Neurology [CONS] Routine Consulting Provider: [facility] Reason for Consult: New onset seizure Call Completed: No 07/18/18 10:42 PT [Consult to Physical Therapy] [CONS] Routine Comment: Evaluate, develop and implement POC Reason for Consult: weakness Does patient have active BEDREST order?: No Is patient medically & hemodynamically stable?: Yes Patient assessed for mobility or mobilized this visit?: Yes 07/18/18 11:26 Consult to Interpret Exam [CONS] Routine Consulting Provider: Steve Contreras Consult to Interpret Exam: Interpret EEG Discharging clinician: Reggie Amador Anticipated date of discharge: 07/19/18 - Constitutional Vitals: Temp Pulse Resp BP Pulse Ox 98.3 F 66 15 144/83 100 07/19/18 07:31 07/19/18 07:31 07/19/18 08:07 07/19/18 07:31 07/19/18 08:07 General appearance: Present: A&O X 3 Exam: . - Head Head exam: Present: atraumatic, normocephalic - Eye Eye exam: Present: PERRL, conjuntiva pink, sclera anicteric Pupils: Present: PERRL - Neck Neck exam general surgery: Present: supple, trachea midline. Absent: lymphadenopathy - Respiratory Respiratory exam: Present: CTAB. Absent: accessory muscle use, rales, rhonchi, wheezes - Cardiovascular Cardiovascular exam: Present: RRR, +S1, +S2. Absent: diastolic murmur, gallop, rubs, systolic murmur - GI/Abdominal GI/Abdominal exam: Present: normal bowel sounds, soft, no peritoneal signs. Absent: distended, tenderness - Extremities Exam Extremities exam: Present: warm, radial pulses palpable and symmetrical. Absent : calf tenderness, cyanotic, pedal edema - Neurological Exam Neurological exam: Present: alert, CN II-XII intact, oriented X3, no focal deficits. Absent: pronater drift, facial droop, speech deficit - Skin Skin exam: Present: dry, intact - Patient Status Disposition: Home, Self-Care Condition: Good Functional capacity at discharge: independent ambulation Overall status at discharge: patient is progressing back to baseline - Discharge Instructions Follow [facility] With: [facility] [Primary Care Provider] - - Diet and Activity Activity: increase activity as tolerated, resume usual activities as tolerated Diet: advance to your usual diet
[2018-07-19] MEDS: Loratadine 10 MG TABLET PO SCH (11:38)
[2018-07-19] MEDS: *HR* HYDROcodone/Acet 5/325 mg TABLET PO PRN (11:39)
[2018-07-19] MEDS: Fluticasone Propionate Nasal 50 MCG/SPRAY BOTTLE NS SCH (11:39)
== END 2018-07-19 12:04 | disposition home or self-care (01) ==
LOC: 3BNU
PROVIDERS: ADMIT Internal Medicine; ATTEND Internal Medicine